=== PATIENT | female | born 1985 | race African-American/Black ===

== ENCOUNTER 2018-03-26 22:51 | Emergency (ER) | payer OTHER ==
[~2018-03-26] VITALS: Ht 162.6 cm; Wt 104.3 kg
[2018-03-26 23:04] VITALS: BP 123/70
[2018-03-26] MEDS ORDERED: NEOM10SO7 AD (23:38)
--- NOTE | 2018-03-27 00:37 | PHYS DOC ---
Past Medical History Past Medical History: Endometriosis Additional Past Surgical Histo: ENDOMETRIOSIS SURG X2 Alcohol Use: None Drug Use: None Adult General Chief Complaint Chief Complaint: FOREIGNBODY EAR HPI HPI Patient is a 32 year old female presenting with a bug in her right ear. He just crawled in there. Pain is moderate nonradiating no other exacerbating or alleviating factors Review of Systems Review of Systems Allergies Allergies Allergies Coded Allergies Type Severity Reaction Last Updated Verified No Known Drug Allergies 03/26/18 No Physical Exam Physical Exam Constitutional: Well developed, well nourished, no acute distress, non-toxic appearance. [] HENT: Normocephalic, atraumatic, bilateral external ears normal, oropharynx moist, no oral exudates, nose normal. Right ear canal showed erythema and some inflammation this was after the bug was removed whole by nursing staff with irrigation combo saline and hydrogen peroxide. The eardrum appears intact Eyes: PERRLA, EOMI, conjunctiva normal, no discharge. [] Neck: Normal range of motion, no tenderness, supple, no stridor. [] Pulmonary: Normal respiratory effort no increased work of breathing no obvious chest wall trauma Current Patient Data Vital Signs Vital Signs Date Time Temp Pulse Resp B/P (MAP) Pulse Ox O2 Delivery O2 Flow Rate FiO2 03/26/18 23:04 98.2 88 18 123/70 (87) 98 Room Air 98.2 EKG EKG [] Radiology/Procedures Radiology/Procedures [] Course & Med Decision Making Course & Med Decision Making Pertinent Labs and Imaging studies reviewed. (See chart for details) []Ear was irrigated by staff prior to my evaluation of the ear and the bug came out whole I checked the ear after there was mild irritation of the ear canal but the trauma. Intact topical antibiotic prescription was provided return precautions were discussed she voiced understanding she felt much much better. Dragon Disclaimer Dragon Disclaimer This electronic medical record was generated, in whole or in part, using a voice recognition dictation system. Departure Departure Impression: Primary Impression: Foreign body in ear Disposition: 01 HOME, SELF-CARE Condition: STABLE Patient Instructions: Foreign Body-Brief Scripts Neomycin/Polymyxin B Sulf/Hc ([id number] EAR SOLN) 10 Ml Solution 4 DROP AD TID for 5 Days, #1 MISC Prov: NOMI GIBBONS MD 03/26/18 NOMI GIBBONS MD Mar 27, 2018 00:37
== END 2018-03-26 23:53 | disposition home or self-care (01) ==
LOC: ER 22:51
DX: T16.1XXA Foreign body in right ear, initial encounter (principal); X58.XXXA Exposure to other specified factors, initial encounter; Y93.89 Activity, other specified; Y92.89 Other specified places as the place of occurrence of the external cause; Y99.8 Other external cause status
CPT/HCPCS: 99284